=== PATIENT | male | born 1935 | race Caucasian/White ===

== ENCOUNTER 2017-08-03 21:48 | Inpatient (IN) | payer MEDICARE, OTHER ==
[2017-08-03] MEDS: ACETAMINOPHEN 325 MG TAB PO (22:04)
[2017-08-03 22:32] LABS: ADD MAN DIFF? NO
[2017-08-03 22:40] LABS: WHITE BLOOD COUNT 14.8 10^3/ul (4.8-10.8)
[2017-08-03 22:40] LABS: BASOPHILS % 0.1 % (0.0-2.0); HEMATOCRIT 37.4 % (42.0-52.0); HEMOGLOBIN 11.8 g/dl (14.0-18.0); LYMPHOCYTES % 6.5 % (15.0-51.0); MEAN CORPUSCULAR HEMOGLOBIN 30.8 pg (29.0-33.0); MEAN CORPUSCULAR HGB CONC 31.6 g/dl (32.0-37.0); MEAN CORPUSCULAR VOLUME 97.7 fl (82.0-101.0); MEAN PLATELET VOLUME 11.7 fl (7.4-10.4); MONOCYTE # 0.5 10^3/ul (0.3-0.9); MONOCYTES % 3.5 % (0.0-11.0); NEUTROPHILS % 88.3 % (39.0-77.0); NUCLEATED RED BLOOD CELLS # 0.1 10^3/ul (0.0-0.0); NUCLEATED RED BLOOD CELLS% 0.6 /100WBC (0.0-0.0); PLATELET COUNT 138 10^3/UL (140-415); POSITIVE DIFF @See below; RED BLOOD COUNT 3.83 10^6/ul (4.70-6.10); RED CELL DISTRIBUTION WIDTH 14.7 % (11.5-14.5)
[2017-08-03 22:55] LABS: ALANINE AMINOTRANSFERASE 79 IU/L (13-69); ALBUMIN 2.6 g/dl (3.3-4.9); ALBUMIN/GLOBULIN RATIO 0.72; ALKALINE PHOSPHATASE 166 IU/L (42-121); ANION GAP 22 (8-16); ASPARTATE AMINO TRANSFERASE 146 IU/L (15-46); BILIRUBIN,INDIRECT 0.3 mg/dl (0-1.1); BILIRUBIN,TOTAL 0.3 mg/dl (0.2-1.3); BLOOD UREA NITROGEN 107 mg/dl (7-20); CALCIUM 8.2 mg/dl (8.4-10.2); CARBON DIOXIDE 17 mmol/L (21-31); CHLORIDE 125 mmol/L (97-110); CREATININE 3.74 mg/dl (0.61-1.24); GLUCOSE 211 mg/dl (70-220); SODIUM 160 mmol/L (135-144); TOTAL PROTEIN 6.2 g/dl (6.1-8.1)
[2017-08-03] MEDS: SODIUM CHLORIDE 0.9% 1L BAG IV* (22:58)
[2017-08-03] MEDS: CEFEPIME 2GM/50 ML (PMX) 50 ML IVPB (23:08)
[2017-08-03 23:13] LABS: FREE THYROXINE INDEX (Calc) 2.01 ug/ml (0.65-3.89); T4 (THYROXINE) 4.1 ug/dl (5.5-11.0)
[2017-08-03] MEDS: VANCOMYCIN 1 GM (PMX) 250 ML IVPB (23:35)
[2017-08-03] MEDS: ACETAMINOPHEN 650 MG SUPP PR (23:48)
[2017-08-03] MEDS: DILTIAZEM 25 MG INJ IV (23:48)
[2017-08-03] MEDS: MAGNESIUM SULFATE 2 GM/50 ML 50 ML IVPB (23:49)
[2017-08-04 01:03] LABS: LACTIC ACID 4.6 mmol/L (0.5-2.0)
[2017-08-04] MEDS: CLINDAMYCIN 600 MG/D5W (PMX) 50 ML IVPB ×2 (01:03→12:19)
[2017-08-04] MEDS ORDERED: ACETAMINOPHEN 325 MG TAB PO (01:30)
[2017-08-04] MEDS ORDERED: ONDANSETRON 4 MG INJ IV ×2 (01:30→03:00)
[2017-08-04 01:52] LABS: ADD UMIC YES; UR AMORPHOUS CRYSTAL FEW /HPF (NONE SEEN); UR ASCORBIC ACID NEGATIVE (NEGATIVE); UR BACTERIA FEW /HPF (NONE SEEN); UR BILIRUBIN (Dip) NEGATIVE (NEGATIVE); UR BLOOD (Dip) 2+ mg/dL (NEGATIVE); UR CLARITY CLOUDY (CLEAR); UR COLOR YELLOW (YELLOW); UR GLUCOSE (Dip) 1+ mg/dL (NEGATIVE); UR KETONES (Dip) NEGATIVE (NEGATIVE); UR LEUKOCYTE ESTERASE (Dip) NEGATIVE Leu/ul (NEGATIVE); UR NITRITE (Dip) NEGATIVE (NEGATIVE); UR RBC 5 /HPF (0-5); UR SPECIFIC GRAVITY (Dip) 1.016 (1.003-1.030); UR TOTAL PROTEIN (Dip) 1+ mg/dl (NEGATIVE); UR UROBILINOGEN (Dip) NEGATIVE (NEGATIVE); UR WBC 4 /HPF (0-5)
[2017-08-04 02:06] LABS: ANION GAP 18 (8-16); BLOOD UREA NITROGEN 98 mg/dl (7-20); CALCIUM 7.2 mg/dl (8.4-10.2); CARBON DIOXIDE 18 mmol/L (21-31); CHLORIDE 127 mmol/L (97-110); CREATININE 3.38 mg/dl (0.61-1.24); GLUCOSE 175 mg/dl (70-220); SODIUM 159 mmol/L (135-144)
[2017-08-04] MEDS ORDERED: LORAZEPAM 2 MG INJ IV (03:00)
[2017-08-04] MEDS ORDERED: ACETAMINOPHEN 650 MG SUPP PR (03:00)
[2017-08-04] MEDS ORDERED: NACL 0.9% 3 ML SYG IV (03:00)
[2017-08-04] MEDS: DEXTROSE 5% 1,000 ML IV ×4 (05:57→20:50)
[2017-08-04 08:46] LABS: WHITE BLOOD COUNT 16.1 10^3/ul (4.8-10.8)
[2017-08-04 08:46] LABS: ABNORMAL IP MESSAGE 1; HEMATOCRIT 37.8 % (42.0-52.0); HEMOGLOBIN 11.5 g/dl (14.0-18.0); MEAN CORPUSCULAR HEMOGLOBIN 30.8 pg (29.0-33.0); MEAN CORPUSCULAR HGB CONC 30.4 g/dl (32.0-37.0); MEAN CORPUSCULAR VOLUME 101.3 fl (82.0-101.0); MEAN PLATELET VOLUME 12.3 fl (7.4-10.4); NUCLEATED RED BLOOD CELLS% 0.3 /100WBC (0.0-0.0); PLATELET COUNT 109 10^3/UL (140-415); POSITIVE DIFF @See below; RED BLOOD COUNT 3.73 10^6/ul (4.70-6.10)
[2017-08-04 08:59] LABS: HEMOGLOBIN A1C 6.1 % (0-5.9)
[2017-08-04] MEDS ORDERED: VANCOMYCIN IV PER PHARMACY XX (09:00)
[2017-08-04 09:01] LABS: ALANINE AMINOTRANSFERASE 75 IU/L (13-69); ALBUMIN 2.7 g/dl (3.3-4.9); ALBUMIN/GLOBULIN RATIO 0.77; ALKALINE PHOSPHATASE 166 IU/L (42-121); ANION GAP 21 (8-16); ASPARTATE AMINO TRANSFERASE 97 IU/L (15-46); BILIRUBIN,INDIRECT 0.3 mg/dl (0-1.1); BILIRUBIN,TOTAL 0.3 mg/dl (0.2-1.3); BLOOD UREA NITROGEN 103 mg/dl (7-20); CALCIUM 8.2 mg/dl (8.4-10.2); CARBON DIOXIDE 18 mmol/L (21-31); CHLORIDE 126 mmol/L (97-110); CREATININE 3.51 mg/dl (0.61-1.24); GLUCOSE 258 mg/dl (70-220); TOTAL PROTEIN 6.2 g/dl (6.1-8.1)
[2017-08-04 09:03] LABS: ADD MAN DIFF? YES
[2017-08-04 09:08] LABS: SODIUM 161 mmol/L (135-144)
[2017-08-04 09:22] LABS: CREATINE KINASE 717 IU/L (23-200)
[2017-08-04 09:24] LABS: TROPONIN-I 0.078 ng/ml (0.00-0.12)
[2017-08-04 09:25] LABS: CK-MB 7.44 ng/ml (0.0-2.4)
[2017-08-04 09:26] LABS: MAGNESIUM 3.2 mg/dl (1.7-2.5)
[2017-08-04 09:29] LABS: ANION GAP 19 (8-16); BLOOD UREA NITROGEN 100 mg/dl (7-20); CALCIUM 7.9 mg/dl (8.4-10.2); CARBON DIOXIDE 17 mmol/L (21-31); CHLORIDE 128 mmol/L (97-110); CREATININE 3.53 mg/dl (0.61-1.24); GLUCOSE 265 mg/dl (70-220); SODIUM 160 mmol/L (135-144)
[2017-08-04] MEDS: ASPIRIN 81 MG TAB PO (09:30)
[2017-08-04] MEDS: VANCOMYCIN 500MG/NS (PMX) 100 ML IVPB (10:33)
[2017-08-04] MEDS ORDERED: DEXTROSE 50% 50 ML SYRINGE IV ×2 (11:00)
[2017-08-04] MEDS ORDERED: GLUCOSE GEL 15 GRAM TUBE BUCCAL (11:00)
[2017-08-04] MEDS ORDERED: GLUCAGON 1 MG INJ IM (11:00)
[2017-08-04] MEDS ORDERED: GLUCOSE GEL 15 GRAM TUBE PO ×2 (11:00)
[2017-08-04 11:10] LABS: LACTIC ACID 5.8 mmol/L (0.5-2.0)
[2017-08-04 11:55] LABS: ANISOCYTOSIS 1+ (0-0); BAND NEUTROPHILS #M 3.5 10^3/ul (0.0-0.6); BAND NEUTROPHILS % (M) 22 % (0-4); ERYTHROBLAST% (NRBC) (M) 2 % (0-0); LYMPHOCYTES #M 1.2 10^3/ul (0.8-2.9); LYMPHOCYTES % (M) 8 % (15-51); MONOCYTE #M 0.4 10^3/ul (0.3-0.9); MONOCYTES % (M) 3 % (0-11); PLATELET ESTIMATE DECREASED; POIKILOCYTOSIS 3+ (0-0); POLYCHROMASIA 3+ (0-0); SEG NEUT #M 11.4 10^3/ul (1.7-7.5); SEGMENTED NEUTROPHILS (M) % 67 % (39-77)
[2017-08-04] MEDS: INFLUENZA VIRUS VACCINE 0.5 ML SYG IM* (12:07)
[2017-08-04] MEDS: INSULIN ASPART [NOVOLOG] 3 ML PEN SC ×3 (12:20→21:00)
[2017-08-04 13:44] LABS: CREATINE KINASE 543 IU/L (23-200)
[2017-08-04 13:48] LABS: CK INDEX 1.4; TROPONIN-I 0.055 ng/ml (0.00-0.12)
[2017-08-04 13:49] LABS: CK-MB 7.42 ng/ml (0.0-2.4)
[2017-08-04 14:40] LABS: SODIUM,URINE RANDOM 41 mmol/L (30-90)
[2017-08-04 18:47] LABS: ANION GAP 16 (8-16); BLOOD UREA NITROGEN 97 mg/dl (7-20); CALCIUM 7.9 mg/dl (8.4-10.2); CARBON DIOXIDE 15 mmol/L (21-31); CHLORIDE 127 mmol/L (97-110); CREATININE 3.01 mg/dl (0.61-1.24); GLUCOSE 199 mg/dl (70-220); PHOSPHORUS 5.7 mg/dl (2.5-4.9); POTASSIUM 3.4 mmol/L (3.5-5.1); SODIUM 155 mmol/L (135-144)
[2017-08-04] MEDS: CEFEPIME 1GM/50 ML (PMX) 50 ML IVPB (20:57)
[2017-08-04] MEDS: POTASSIUM CHLORIDE 20 MEQ in DEXTROSE 5% 100 ML IVPB (21:16)
[2017-08-05] MEDS: POTASSIUM CHLORIDE 20 MEQ in DEXTROSE 5% 100 ML IVPB (00:23)
[2017-08-05] MEDS: ACCU-CHEK XX (02:00)
[2017-08-05] MEDS: DEXTROSE 5% 1,000 ML IV ×5 (02:14→19:51)
[2017-08-05] MEDS: INSULIN ASPART [NOVOLOG] 3 ML PEN SC ×4 (08:00→20:12)
[2017-08-05] MEDS: ASPIRIN 81 MG TAB PO (09:14)
[2017-08-05 09:17] LABS: ADD MAN DIFF? NO
[2017-08-05] MEDS: COLLAGENASE 30 GM TUBE TOP ×2 (09:18)
[2017-08-05 09:20] LABS: WHITE BLOOD COUNT 14.1 10^3/ul (4.8-10.8)
[2017-08-05 09:20] LABS: ABNORMAL IP MESSAGE 1; BASOPHILS % 0.2 % (0.0-2.0); EOSINOPHILS # 0.2 10^3/ul (0.0-0.5); EOSINOPHILS % 1.6 % (0.0-7.0); HEMATOCRIT 34.2 % (42.0-52.0); HEMOGLOBIN 10.7 g/dl (14.0-18.0); LYMPHOCYTES # 0.9 10^3/ul (0.8-2.9); LYMPHOCYTES % 6.2 % (15.0-51.0); MEAN CORPUSCULAR HEMOGLOBIN 30.8 pg (29.0-33.0); MEAN CORPUSCULAR HGB CONC 31.3 g/dl (32.0-37.0); MEAN CORPUSCULAR VOLUME 98.6 fl (82.0-101.0); MEAN PLATELET VOLUME 13.2 fl (7.4-10.4); MONOCYTE # 0.4 10^3/ul (0.3-0.9); NEUTROPHIL # 12.4 10^3/ul (1.6-7.5); NEUTROPHILS % 87.8 % (39.0-77.0); NUCLEATED RED BLOOD CELLS # 0.1 10^3/ul (0.0-0.0); NUCLEATED RED BLOOD CELLS% 0.6 /100WBC (0.0-0.0); PLATELET COUNT 90 10^3/UL (140-415); POSITIVE DIFF @See below; RED BLOOD COUNT 3.47 10^6/ul (4.70-6.10)
[2017-08-05 09:53] LABS: ALANINE AMINOTRANSFERASE 64 IU/L (13-69); ALBUMIN 2.5 g/dl (3.3-4.9); ALBUMIN/GLOBULIN RATIO 0.71; ALKALINE PHOSPHATASE 146 IU/L (42-121); ANION GAP 21 (8-16); ASPARTATE AMINO TRANSFERASE 59 IU/L (15-46); BILIRUBIN,INDIRECT 0.5 mg/dl (0-1.1); BILIRUBIN,TOTAL 0.5 mg/dl (0.2-1.3); BLOOD UREA NITROGEN 87 mg/dl (7-20); CALCIUM 8.3 mg/dl (8.4-10.2); CARBON DIOXIDE 18 mmol/L (21-31); CHLORIDE 124 mmol/L (97-110); CREATININE 2.51 mg/dl (0.61-1.24); GLUCOSE 133 mg/dl (70-220); MAGNESIUM 2.7 mg/dl (1.7-2.5); PHOSPHORUS 4.1 mg/dl (2.5-4.9); POTASSIUM 3.7 mmol/L (3.5-5.1); SODIUM 159 mmol/L (135-144)
[2017-08-05 10:16] LABS: AADO2 Arterial 96.9 mmHg (7.0-24.0); Allen Test ACCEPTAB; Arterial Base Excess -6.7 mmol/L (-3.0-3); Arterial Blood Gas Oxygen Sat 96.6 mmHG (95.0-100.0); Arterial COHb 0.3 % (0.0-3.0); Arterial Fraction of Oxyhgb 96.1 % (93.0-99.0); Arterial MetHb 0.2 % (0.0-1.5); Arterial Total Hemglobin 11.5 g/dl (12.0-18.0); Arterial pCO2 24.2 mmhg (35-45); MODE NASAL CANNULA; Site Right Radial
[2017-08-05] MEDS: HEPARIN 5,000 UNIT/0.5 ML VIAL SC (12:09)
[2017-08-05] MEDS: METOPROLOL (XL) 25 MG TAB PO (16:59)
[2017-08-05] MEDS: CEFEPIME 1GM/50 ML (PMX) 50 ML IVPB (19:57)
[2017-08-05] MEDS ORDERED: HEPARIN 1000 UNITS/ML 10 ML INJ IV ×2 (20:30)
[2017-08-05 20:55] LABS: ADD MAN DIFF? NO
[2017-08-05 20:57] LABS: WHITE BLOOD COUNT 13.8 10^3/ul (4.8-10.8)
[2017-08-05 20:57] LABS: ABNORMAL IP MESSAGE 1; BASOPHILS % 0.1 % (0.0-2.0); EOSINOPHILS # 0.2 10^3/ul (0.0-0.5); EOSINOPHILS % 1.4 % (0.0-7.0); HEMATOCRIT 32.6 % (42.0-52.0); HEMOGLOBIN 10.2 g/dl (14.0-18.0); LYMPHOCYTES % 6.9 % (15.0-51.0); MEAN CORPUSCULAR HGB CONC 31.3 g/dl (32.0-37.0); MEAN CORPUSCULAR VOLUME 99.1 fl (82.0-101.0); MONOCYTE # 0.6 10^3/ul (0.3-0.9); MONOCYTES % 4.3 % (0.0-11.0); NEUTROPHIL # 11.9 10^3/ul (1.6-7.5); NEUTROPHILS % 86.4 % (39.0-77.0); NUCLEATED RED BLOOD CELLS # 0.1 10^3/ul (0.0-0.0); NUCLEATED RED BLOOD CELLS% 0.7 /100WBC (0.0-0.0); PLATELET COUNT 79 10^3/UL (140-415); POSITIVE DIFF @See below; RED BLOOD COUNT 3.29 10^6/ul (4.70-6.10); RED CELL DISTRIBUTION WIDTH 15.1 % (11.5-14.5)
[2017-08-05 21:13] LABS: INR 1.34; PROTIME 16.8 Sec (11.9-14.9); PT RATIO 1.3
[2017-08-05] MEDS: HEPARIN 1000 UNITS/ML 10 ML INJ IV (22:01)
[2017-08-05] MEDS: HEPARIN 25000 UNITS/250 ML 250 ML IV (22:03)
[2017-08-06] MEDS: AL HYDROX/MG HYDROX/SIMETH 30 ML CUP PO (00:59)
[2017-08-06] MEDS: ACCU-CHEK XX (01:01)
[2017-08-06 01:20] LABS: ADD MAN DIFF? NO
[2017-08-06 01:22] LABS: WHITE BLOOD COUNT 13.7 10^3/ul (4.8-10.8)
[2017-08-06 01:22] LABS: ABNORMAL IP MESSAGE 1; BASOPHILS % 0.1 % (0.0-2.0); EOSINOPHILS # 0.3 10^3/ul (0.0-0.5); HEMATOCRIT 30.6 % (42.0-52.0); HEMOGLOBIN 9.7 g/dl (14.0-18.0); LYMPHOCYTES # 1.2 10^3/ul (0.8-2.9); LYMPHOCYTES % 8.8 % (15.0-51.0); MEAN CORPUSCULAR HEMOGLOBIN 31.2 pg (29.0-33.0); MEAN CORPUSCULAR HGB CONC 31.7 g/dl (32.0-37.0); MEAN CORPUSCULAR VOLUME 98.4 fl (82.0-101.0); MEAN PLATELET VOLUME 13.4 fl (7.4-10.4); MONOCYTE # 0.6 10^3/ul (0.3-0.9); MONOCYTES % 4.4 % (0.0-11.0); NEUTROPHIL # 11.4 10^3/ul (1.6-7.5); NEUTROPHILS % 83.4 % (39.0-77.0); NUCLEATED RED BLOOD CELLS # 0.1 10^3/ul (0.0-0.0); NUCLEATED RED BLOOD CELLS% 0.7 /100WBC (0.0-0.0); PLATELET COUNT 92 10^3/UL (140-415); POSITIVE DIFF @See below; RED BLOOD COUNT 3.11 10^6/ul (4.70-6.10); RED CELL DISTRIBUTION WIDTH 14.7 % (11.5-14.5)
[2017-08-06] MEDS: DEXTROSE 5% 1,000 ML IV ×4 (03:51→22:32)
[2017-08-06 04:41] LABS: ADD MAN DIFF? NO
[2017-08-06 04:43] LABS: ABNORMAL IP MESSAGE 1; BASOPHILS % 0.2 % (0.0-2.0); EOSINOPHILS # 0.2 10^3/ul (0.0-0.5); EOSINOPHILS % 1.5 % (0.0-7.0); HEMATOCRIT 29.7 % (42.0-52.0); HEMOGLOBIN 9.5 g/dl (14.0-18.0); MEAN CORPUSCULAR HEMOGLOBIN 30.8 pg (29.0-33.0); MEAN CORPUSCULAR VOLUME 96.4 fl (82.0-101.0); MEAN PLATELET VOLUME 12.7 fl (7.4-10.4); MONOCYTE # 0.4 10^3/ul (0.3-0.9); MONOCYTES % 3.3 % (0.0-11.0); NEUTROPHIL # 9.4 10^3/ul (1.6-7.5); NEUTROPHILS % 84.8 % (39.0-77.0); NUCLEATED RED BLOOD CELLS # 0.1 10^3/ul (0.0-0.0); NUCLEATED RED BLOOD CELLS% 0.8 /100WBC (0.0-0.0); PLATELET COUNT 92 10^3/UL (140-415); POSITIVE DIFF @See below; RED BLOOD COUNT 3.08 10^6/ul (4.70-6.10); RED CELL DISTRIBUTION WIDTH 14.6 % (11.5-14.5)
[2017-08-06 05:09] LABS: VANCOMYCIN,RANDOM 8.8 ug/ml
[2017-08-06 05:09] LABS: ANION GAP 14 (8-16); BLOOD UREA NITROGEN 65 mg/dl (7-20); CALCIUM 7.7 mg/dl (8.4-10.2); CARBON DIOXIDE 20 mmol/L (21-31); CHLORIDE 118 mmol/L (97-110); CREATININE 1.72 mg/dl (0.61-1.24); GLUCOSE 136 mg/dl (70-220); MAGNESIUM 2.5 mg/dl (1.7-2.5); PHOSPHORUS 2.6 mg/dl (2.5-4.9); POTASSIUM 3.7 mmol/L (3.5-5.1); SODIUM 148 mmol/L (135-144)
[2017-08-06 06:05] LABS: PARTIAL THROMBOPLASTIN TIME > 180.0 Sec (25.0-35.0)
[2017-08-06] MEDS: INSULIN ASPART [NOVOLOG] 3 ML PEN SC ×4 (08:00→20:20)
[2017-08-06] MEDS: METOPROLOL (XL) 25 MG TAB PO (09:01)
[2017-08-06] MEDS: ASPIRIN 81 MG TAB PO (09:01)
[2017-08-06] MEDS: COLLAGENASE 30 GM TUBE TOP (09:02)
[2017-08-06 09:08] LABS: PARTIAL THROMBOPLASTIN TIME 54.4 Sec (25.0-35.0)
[2017-08-06] MEDS: HEPARIN 25000 UNITS/250 ML 250 ML IV ×3 (09:20→22:52)
[2017-08-06] MEDS: POTASSIUM CHLORIDE 50 ML IVPB ×3 (11:04→13:37)
[2017-08-06] MEDS: ACETAMINOPHEN 325 MG TAB PO ×2 (15:45→22:47)
[2017-08-06] MEDS: VANCOMYCIN 1.5 GM in DEXTROSE 5% 500 ML IVPB (15:45)
[2017-08-06 17:28] LABS: PARTIAL THROMBOPLASTIN TIME 136.7 Sec (25.0-35.0)
[2017-08-06] MEDS ORDERED: HEPARIN 25000 UNITS/250 ML 250 ML IV (22:36)
[2017-08-06 23:59] LABS: PARTIAL THROMBOPLASTIN TIME 90.3 Sec (25.0-35.0)
[2017-08-07] MEDS: ACCU-CHEK XX (02:00)
[2017-08-07] MEDS: LEVOFLOXACIN 750 MG TABLET PO (05:22)
[2017-08-07 07:28] LABS: ADD MAN DIFF? NO
[2017-08-07 07:32] LABS: WHITE BLOOD COUNT 10.3 10^3/ul (4.8-10.8)
[2017-08-07 07:32] LABS: BASOPHILS % 0.2 % (0.0-2.0); EOSINOPHILS # 0.2 10^3/ul (0.0-0.5); EOSINOPHILS % 1.5 % (0.0-7.0); HEMATOCRIT 30.4 % (42.0-52.0); HEMOGLOBIN 9.8 g/dl (14.0-18.0); LYMPHOCYTES # 1.1 10^3/ul (0.8-2.9); LYMPHOCYTES % 10.4 % (15.0-51.0); MEAN CORPUSCULAR HEMOGLOBIN 31.2 pg (29.0-33.0); MEAN CORPUSCULAR HGB CONC 32.2 g/dl (32.0-37.0); MEAN CORPUSCULAR VOLUME 96.8 fl (82.0-101.0); MEAN PLATELET VOLUME 12.5 fl (7.4-10.4); MONOCYTE # 0.7 10^3/ul (0.3-0.9); MONOCYTES % 6.6 % (0.0-11.0); NEUTROPHIL # 8.2 10^3/ul (1.6-7.5); NEUTROPHILS % 79.4 % (39.0-77.0); NUCLEATED RED BLOOD CELLS # 0.1 10^3/ul (0.0-0.0); NUCLEATED RED BLOOD CELLS% 0.5 /100WBC (0.0-0.0); PLATELET COUNT 116 10^3/UL (140-415); POSITIVE DIFF @See below; RED BLOOD COUNT 3.14 10^6/ul (4.70-6.10); RED CELL DISTRIBUTION WIDTH 14.8 % (11.5-14.5)
[2017-08-07] MEDS: INSULIN ASPART [NOVOLOG] 3 ML PEN SC ×4 (08:00→21:00)
[2017-08-07 08:03] LABS: INR 1.16; PT RATIO 1.2
[2017-08-07 08:14] LABS: ALANINE AMINOTRANSFERASE 59 IU/L (13-69); ALBUMIN 2.4 g/dl (3.3-4.9); ALBUMIN/GLOBULIN RATIO 0.75; ALKALINE PHOSPHATASE 143 IU/L (42-121); ANION GAP 12 (8-16); ASPARTATE AMINO TRANSFERASE 63 IU/L (15-46); BILIRUBIN,INDIRECT 0.4 mg/dl (0-1.1); BILIRUBIN,TOTAL 0.4 mg/dl (0.2-1.3); BLOOD UREA NITROGEN 42 mg/dl (7-20); CALCIUM 7.5 mg/dl (8.4-10.2); CARBON DIOXIDE 19 mmol/L (21-31); CHLORIDE 115 mmol/L (97-110); CREATININE 1.21 mg/dl (0.61-1.24); GLUCOSE 109 mg/dl (70-220); MAGNESIUM 2.2 mg/dl (1.7-2.5); SODIUM 142 mmol/L (135-144); TOTAL PROTEIN 5.6 g/dl (6.1-8.1)
[2017-08-07] MEDS: COLLAGENASE 30 GM TUBE TOP (08:26)
[2017-08-07] MEDS: METOPROLOL (XL) 25 MG TAB PO (08:26)
[2017-08-07 08:54] LABS: PARTIAL THROMBOPLASTIN TIME 71.5 Sec (25.0-35.0)
[2017-08-07] MEDS: DEXTROSE 5%-0.45% NACL 1,000 ML IV (10:33)
[2017-08-07] MEDS: ACETAMINOPHEN 325 MG TAB PO (13:09)
[2017-08-07 16:10] LABS: PARTIAL THROMBOPLASTIN TIME 78.5 Sec (25.0-35.0)
[2017-08-07] MEDS: traMADol 50 MG TAB PO (17:56)
[2017-08-07] MEDS: HEPARIN 25000 UNITS/250 ML 250 ML IV (23:26)
[2017-08-08] MEDS: ACCU-CHEK XX (01:16)
[2017-08-08] MEDS: DEXTROSE 5%-0.45% NACL 1,000 ML IV ×2 (01:16→21:29)
[2017-08-08] MEDS: LEVOFLOXACIN 750 MG TABLET PO (05:04)
[2017-08-08] MEDS: INSULIN ASPART [NOVOLOG] 3 ML PEN SC ×4 (08:00→21:00)
[2017-08-08 08:57] LABS: ADD MAN DIFF? NO
[2017-08-08 09:13] LABS: BASOPHILS % 0.1 % (0.0-2.0); EOSINOPHILS # 0.2 10^3/ul (0.0-0.5); EOSINOPHILS % 1.9 % (0.0-7.0); HEMATOCRIT 29.2 % (42.0-52.0); HEMOGLOBIN 9.5 g/dl (14.0-18.0); LYMPHOCYTES # 1.1 10^3/ul (0.8-2.9); LYMPHOCYTES % 11.5 % (15.0-51.0); MEAN CORPUSCULAR HEMOGLOBIN 30.6 pg (29.0-33.0); MEAN CORPUSCULAR HGB CONC 32.5 g/dl (32.0-37.0); MEAN CORPUSCULAR VOLUME 94.2 fl (82.0-101.0); MEAN PLATELET VOLUME 12.2 fl (7.4-10.4); MONOCYTE # 0.7 10^3/ul (0.3-0.9); MONOCYTES % 6.9 % (0.0-11.0); NEUTROPHIL # 7.4 10^3/ul (1.6-7.5); NEUTROPHILS % 75.6 % (39.0-77.0); NUCLEATED RED BLOOD CELLS% 0.3 /100WBC (0.0-0.0); PLATELET COUNT 167 10^3/UL (140-415); POSITIVE DIFF @See below; RED CELL DISTRIBUTION WIDTH 14.8 % (11.5-14.5)
[2017-08-08 09:13] LABS: WHITE BLOOD COUNT 9.8 10^3/ul (4.8-10.8)
[2017-08-08] MEDS: METOPROLOL (XL) 25 MG TAB PO (09:25)
[2017-08-08] MEDS: COLLAGENASE 30 GM TUBE TOP (09:30)
[2017-08-08 09:41] LABS: PARTIAL THROMBOPLASTIN TIME 89.9 Sec (25.0-35.0)
[2017-08-08 09:43] LABS: BLOOD UREA NITROGEN 43 mg/dl (7-20); CALCIUM 7.8 mg/dl (8.4-10.2); CARBON DIOXIDE 18 mmol/L (21-31); CHLORIDE 113 mmol/L (97-110); CREATININE 1.48 mg/dl (0.61-1.24); GLUCOSE 104 mg/dl (70-220); POTASSIUM 4.7 mmol/L (3.5-5.1)
[2017-08-08 09:55] LABS: ANION GAP 16 (8-16); SODIUM 142 mmol/L (135-144)
[2017-08-08 10:29] LABS: CHOLESTEROL 100 mg/dl (100-200); HDL CHOLESTEROL 25 mg/dl (31-75); LDL CHOLESTEROL,CALCULATED 43 mg/dl; MAGNESIUM 2.3 mg/dl (1.7-2.5); TRIGLYCERIDES 161 mg/dl (0-149)
[2017-08-08 10:29] LABS: PHOSPHORUS 4.4 mg/dl (2.5-4.9)
[2017-08-08 10:44] LABS: ANISOCYTOSIS 1+ (0-0); EOSINOPHILS % (M) 3 % (0-7); LYMPHOCYTES #M 1.3 10^3/ul (0.8-2.9); LYMPHOCYTES % (M) 14 % (15-51); MONOCYTES % (M) 11 % (0-11); MYELOCYTES % (M) 1 % (0-0); PLATELET ESTIMATE NORMAL; POLYCHROMASIA 1+ (0-0); REACTIVE LYMPHOCYTES #M 0.2 10^3/ul (0.0-0.0); REACTIVE LYMPHOCYTES% (M) 3 % (0-0); SEGMENTED NEUTROPHILS (M) % 68 % (39-77); SMUDGE%M 5 % (0-0)
[2017-08-08] MEDS: traMADol 50 MG TAB PO ×2 (11:30→17:43)
[2017-08-08] MEDS: APIXABAN 5 MG TABLET PO (21:31)
[2017-08-08] MEDS: HALOPERIDOL 5 MG INJ IM (22:00)
[2017-08-08] MEDS: HALOPERIDOL 1 MG TAB PO (23:39)
[2017-08-09] MEDS: ACCU-CHEK XX (02:00)
[2017-08-09] MEDS: LEVOFLOXACIN 750 MG TABLET PO (06:59)
[2017-08-09] MEDS: INSULIN ASPART [NOVOLOG] 3 ML PEN SC ×4 (08:00→20:42)
[2017-08-09 08:12] LABS: ADD MAN DIFF? NO
[2017-08-09 08:20] LABS: WHITE BLOOD COUNT 10.3 10^3/ul (4.8-10.8)
[2017-08-09 08:20] LABS: BASOPHILS % 0.3 % (0.0-2.0); EOSINOPHILS # 0.3 10^3/ul (0.0-0.5); EOSINOPHILS % 2.4 % (0.0-7.0); HEMATOCRIT 30.1 % (42.0-52.0); HEMOGLOBIN 9.4 g/dl (14.0-18.0); LYMPHOCYTES # 1.2 10^3/ul (0.8-2.9); LYMPHOCYTES % 11.3 % (15.0-51.0); MEAN CORPUSCULAR HEMOGLOBIN 30.4 pg (29.0-33.0); MEAN CORPUSCULAR HGB CONC 31.2 g/dl (32.0-37.0); MEAN CORPUSCULAR VOLUME 97.4 fl (82.0-101.0); MEAN PLATELET VOLUME 11.6 fl (7.4-10.4); MONOCYTE # 0.7 10^3/ul (0.3-0.9); MONOCYTES % 6.9 % (0.0-11.0); NEUTROPHIL # 7.7 10^3/ul (1.6-7.5); NUCLEATED RED BLOOD CELLS% 0.2 /100WBC (0.0-0.0); PLATELET COUNT 237 10^3/UL (140-415); RED BLOOD COUNT 3.09 10^6/ul (4.70-6.10)
[2017-08-09] MEDS: APIXABAN 5 MG TABLET PO ×2 (08:27→20:40)
[2017-08-09] MEDS: HALOPERIDOL 1 MG TAB PO ×2 (08:27→22:32)
[2017-08-09] MEDS: METOPROLOL (XL) 25 MG TAB PO ×2 (08:27→14:08)
[2017-08-09] MEDS: COLLAGENASE 30 GM TUBE TOP (08:28)
[2017-08-09 08:46] LABS: ANION GAP 14 (8-16); BLOOD UREA NITROGEN 40 mg/dl (7-20); CALCIUM 8.4 mg/dl (8.4-10.2); CARBON DIOXIDE 22 mmol/L (21-31); CHLORIDE 114 mmol/L (97-110); CREATININE 1.55 mg/dl (0.61-1.24); GLUCOSE 128 mg/dl (70-220); POTASSIUM 4.4 mmol/L (3.5-5.1); SODIUM 146 mmol/L (135-144)
[2017-08-09 08:54] LABS: PHOSPHORUS 4.3 mg/dl (2.5-4.9)
[2017-08-09] MEDS: traMADol 50 MG TAB PO (14:08)
[2017-08-09] MEDS: DEXTROSE 5%-0.45% NACL 1,000 ML IV (16:27)
[2017-08-10] MEDS ORDERED: NITROGLYCERIN (SL) 0.4 MG TAB SL (00:30)
[2017-08-10] MEDS: ACCU-CHEK XX (02:00)
[2017-08-10] MEDS: LEVOFLOXACIN 750 MG TABLET PO (06:13)
[2017-08-10] MEDS: INSULIN ASPART [NOVOLOG] 3 ML PEN SC ×4 (08:00→21:00)
[2017-08-10] MEDS: APIXABAN 5 MG TABLET PO ×2 (08:13→22:08)
[2017-08-10] MEDS: HALOPERIDOL 1 MG TAB PO ×2 (08:14→22:08)
[2017-08-10] MEDS: METOPROLOL (XL) 50 MG TAB PO (08:15)
[2017-08-10] MEDS: COLLAGENASE 30 GM TUBE TOP (08:16)
[2017-08-10 08:38] LABS: ADD MAN DIFF? NO
[2017-08-10 08:41] LABS: BASOPHILS % 0.2 % (0.0-2.0); EOSINOPHILS # 0.1 10^3/ul (0.0-0.5); EOSINOPHILS % 1.2 % (0.0-7.0); HEMATOCRIT 28.3 % (42.0-52.0); LYMPHOCYTES % 8.7 % (15.0-51.0); MEAN CORPUSCULAR HEMOGLOBIN 30.6 pg (29.0-33.0); MEAN CORPUSCULAR HGB CONC 31.8 g/dl (32.0-37.0); MEAN CORPUSCULAR VOLUME 96.3 fl (82.0-101.0); MEAN PLATELET VOLUME 11.4 fl (7.4-10.4); MONOCYTE # 0.7 10^3/ul (0.3-0.9); MONOCYTES % 6.3 % (0.0-11.0); NEUTROPHIL # 8.9 10^3/ul (1.6-7.5); NEUTROPHILS % 81.1 % (39.0-77.0); NUCLEATED RED BLOOD CELLS% 0.2 /100WBC (0.0-0.0); PLATELET COUNT 264 10^3/UL (140-415); RED BLOOD COUNT 2.94 10^6/ul (4.70-6.10); RED CELL DISTRIBUTION WIDTH 15.4 % (11.5-14.5)
[2017-08-10 08:41] LABS: WHITE BLOOD COUNT 10.9 10^3/ul (4.8-10.8)
[2017-08-10 09:08] LABS: MAGNESIUM 1.9 mg/dl (1.7-2.5)
[2017-08-10 09:08] LABS: PHOSPHORUS 3.7 mg/dl (2.5-4.9)
[2017-08-10 09:12] LABS: ANION GAP 16 (8-16); BLOOD UREA NITROGEN 37 mg/dl (7-20); CALCIUM 7.7 mg/dl (8.4-10.2); CARBON DIOXIDE 19 mmol/L (21-31); CHLORIDE 115 mmol/L (97-110); GLUCOSE 103 mg/dl (70-220); POTASSIUM 4.9 mmol/L (3.5-5.1); SODIUM 145 mmol/L (135-144)
[2017-08-10] MEDS: DEXTROSE 5% 1,000 ML IV ×2 (09:43→21:00)
[2017-08-11] MEDS: ACCU-CHEK XX ×2 (00:18→21:13)
[2017-08-11] MEDS: INSULIN ASPART [NOVOLOG] 3 ML PEN SC ×4 (08:00→21:00)
[2017-08-11] MEDS: HALOPERIDOL 1 MG TAB PO ×2 (09:49→21:11)
[2017-08-11] MEDS: COLLAGENASE 30 GM TUBE TOP (09:49)
[2017-08-11] MEDS: APIXABAN 5 MG TABLET PO ×2 (09:49→21:11)
[2017-08-11] MEDS: METOPROLOL (XL) 50 MG TAB PO ×2 (09:50→21:11)
[2017-08-11] MEDS: DEXTROSE 5% 1,000 ML IV (09:50)
[2017-08-11 10:07] LABS: ADD MAN DIFF? NO
[2017-08-11 10:12] LABS: BASOPHILS % 0.2 % (0.0-2.0); EOSINOPHILS # 0.2 10^3/ul (0.0-0.5); EOSINOPHILS % 1.6 % (0.0-7.0); HEMOGLOBIN 9.3 g/dl (14.0-18.0); LYMPHOCYTES # 1.4 10^3/ul (0.8-2.9); LYMPHOCYTES % 11.2 % (15.0-51.0); MEAN CORPUSCULAR HEMOGLOBIN 30.5 pg (29.0-33.0); MEAN CORPUSCULAR VOLUME 98.4 fl (82.0-101.0); MONOCYTE # 0.8 10^3/ul (0.3-0.9); MONOCYTES % 6.4 % (0.0-11.0); NEUTROPHIL # 10.1 10^3/ul (1.6-7.5); NEUTROPHILS % 78.5 % (39.0-77.0); PLATELET COUNT 321 10^3/UL (140-415); RED BLOOD COUNT 3.05 10^6/ul (4.70-6.10); RED CELL DISTRIBUTION WIDTH 15.4 % (11.5-14.5)
[2017-08-11 10:12] LABS: WHITE BLOOD COUNT 12.8 10^3/ul (4.8-10.8)
[2017-08-11 10:30] LABS: ANION GAP 17 (8-16); BLOOD UREA NITROGEN 36 mg/dl (7-20); CALCIUM 7.8 mg/dl (8.4-10.2); CARBON DIOXIDE 19 mmol/L (21-31); CHLORIDE 109 mmol/L (97-110); CREATININE 1.34 mg/dl (0.61-1.24); GLUCOSE 113 mg/dl (70-220); MAGNESIUM 1.8 mg/dl (1.7-2.5); PHOSPHORUS 3.7 mg/dl (2.5-4.9); SODIUM 141 mmol/L (135-144)
[2017-08-11] MEDS: traMADol 50 MG TAB PO (14:13)
[2017-08-12] MEDS: INSULIN ASPART [NOVOLOG] 3 ML PEN SC ×2 (08:00→12:00)
[2017-08-12 08:23] LABS: ADD MAN DIFF? NO
[2017-08-12 08:29] LABS: WHITE BLOOD COUNT 11.3 10^3/ul (4.8-10.8)
[2017-08-12 08:29] LABS: BASOPHILS % 0.2 % (0.0-2.0); EOSINOPHILS # 0.2 10^3/ul (0.0-0.5); EOSINOPHILS % 1.7 % (0.0-7.0); HEMATOCRIT 26.4 % (42.0-52.0); HEMOGLOBIN 8.6 g/dl (14.0-18.0); LYMPHOCYTES # 1.1 10^3/ul (0.8-2.9); LYMPHOCYTES % 9.4 % (15.0-51.0); MEAN CORPUSCULAR HEMOGLOBIN 30.7 pg (29.0-33.0); MEAN CORPUSCULAR HGB CONC 32.6 g/dl (32.0-37.0); MEAN CORPUSCULAR VOLUME 94.3 fl (82.0-101.0); MEAN PLATELET VOLUME 10.4 fl (7.4-10.4); MONOCYTE # 0.7 10^3/ul (0.3-0.9); MONOCYTES % 6.3 % (0.0-11.0); NEUTROPHIL # 9.2 10^3/ul (1.6-7.5); PLATELET COUNT 319 10^3/UL (140-415); RED CELL DISTRIBUTION WIDTH 15.5 % (11.5-14.5)
[2017-08-12 09:03] LABS: ANION GAP 14 (8-16); BLOOD UREA NITROGEN 38 mg/dl (7-20); CALCIUM 8.2 mg/dl (8.4-10.2); CARBON DIOXIDE 19 mmol/L (21-31); CHLORIDE 111 mmol/L (97-110); CREATININE 1.37 mg/dl (0.61-1.24); GLUCOSE 98 mg/dl (70-220); MAGNESIUM 1.8 mg/dl (1.7-2.5); PHOSPHORUS 4.2 mg/dl (2.5-4.9); SODIUM 140 mmol/L (135-144)
[2017-08-12] MEDS: APIXABAN 5 MG TABLET PO (09:21)
[2017-08-12] MEDS: METOPROLOL (XL) 50 MG TAB PO (09:21)
[2017-08-12] MEDS: HALOPERIDOL 1 MG TAB PO (09:21)
[2017-08-12] MEDS: COLLAGENASE 30 GM TUBE TOP (09:21)
[2017-08-12] MEDS ORDERED: METOPROLOL 50 MG TAB PO (14:00)
[2017-08-15] MEDS ORDERED: APIXABAN 5 MG TABLET PO (09:00)
== END 2017-08-12 15:19 | DRG 871 ==
LOC: MS4 08-04 01:17 → E/R 21:48
PROVIDERS: Family Medicine
DX: A41.9 Sepsis, unspecified organism (principal); I21.A1 Myocardial infarction type 2; R65.21 Severe sepsis with septic shock; N17.9 Acute kidney failure, unspecified; J18.9 Pneumonia, unspecified organism; E87.0 Hyperosmolality and hypernatremia; I95.9 Hypotension, unspecified; E46 Unspecified protein-calorie malnutrition; I82.411 Acute embolism and thrombosis of right femoral vein; I82.431 Acute embolism and thrombosis of right popliteal vein; I69.351 Hemiplegia and hemiparesis following cerebral infarction affecting right dominant side; I82.4Z1 Acute embolism and thrombosis of unspecified deep veins of right distal lower extremity; I48.0 Paroxysmal atrial fibrillation; E86.0 Dehydration; G30.9 Alzheimer's disease, unspecified; F02.80 Dementia in other diseases classified elsewhere, unspecified severity, without behavioral disturbance, psychotic disturbance, mood disturbance, and anxiety; D64.9 Anemia, unspecified; R60.0 Localized edema; R73.03 Prediabetes; I10 Essential (primary) hypertension; Z68.26 Body mass index [BMI] 26.0-26.9, adult
CPT/HCPCS: 36415; 36600; 70450; 71010; 72170; 72192; 76705; 76775; 80048; 80053; 80061; 80202; 81001; 82550; 82553; 82803; 82962; 83036; 83605; 83735; 84100; 84300; 84436; 84443; 84479; 84484; 85025; 85610; 85730; 87040; 87045; 87075; 87081; 87086; 87400; 90686; 92526; 92610; 93005; 93306; 93971; 96374; 96375; 99291-25